=== PATIENT | male | born 1970 | race Caucasian/White ===

== ENCOUNTER 2019-09-04 11:10 | Emergency (ER) | payer BC ==
[2019-09-04 12:15] VITALS: BP 150/104
--- NOTE | 2019-09-04 13:50 | UC ---
Back Pain HPI - HPI Summary HPI Summary: PT WITH YEARS OF CHRONIC LOW BACK PAIN PRESENTS WITH 5 DAYS OF ACUTE EXACERBATION OF PAIN. NO DISCRETE INJURY. NO SADDLE ANESTHESIA, NUMBNESS/ TINGLING. STATES HIS PAIN USUALLY RESOLVED AFTER MASSAGES HIS BACK BUT NOT THIS TIME. NSAIDS ARE HELPFUL. - History of Current Complaint Chief Complaint: UCBackPain Stated Complaint: BACK PAIN Time Seen by Provider: 09/04/19 12:36 Hx Obtained From: Patient Onset/Duration: Gradual Onset, Lasting Days, Still Present Timing: Constant Severity Initially: Moderate Severity Currently: Moderate Pain Intensity: 6 Pain Scale Used: 0-10 Numeric Character: Sharp Aggravating Factor(s): Movement, Bending Alleviating Factor(s): Rest Associated Signs And Symptoms: Negative: Swelling, Weakness, Numbness, Tingling , Bladder Incontinence, Bowel Incontinence - Allergies/Home Medications Allergies/Adverse Reactions: Allergies Allergy/AdvReac Type Severity Reaction Status Date / Time No Known Allergies Allergy Verified 09/04/19 12:15 PMH/Surg Hx/FS Hx/Imm Hx Cardiovascular History: Hypertension - Surgical History Surgical History: Yes Surgery Procedure, Year, and Place: right bicep repair - Family History Known Family History: Positive: Non-Contributory - Social History Alcohol Use: Occasionally Substance Use Type: None Smoking Status (MU): Never Smoked Tobacco Review of Systems All Other Systems Reviewed And Are Negative: Yes Constitutional: Positive: Negative Skin: Positive: Negative Respiratory: Positive: Negative Cardiovascular: Positive: Negative Gastrointestinal: Positive: Negative Musculoskeletal: Positive: Arthralgia, Decreased ROM, Myalgia Physical Exam Triage Information Reviewed: Yes Appearance: Well-Appearing, No Pain Distress, Well-Nourished Vital Signs: Initial Vital Signs Temp 99.7 F 09/04/19 12:10 Pulse 95 09/04/19 12:10 Resp 18 09/04/19 12:10 BP 150/104 09/04/19 12:10 Pulse Ox 99 09/04/19 12:10 Vital Signs Reviewed: Yes Eyes: Positive: Conjunctiva Clear ENT: Positive: Hearing grossly normal Neck: Positive: Supple Respiratory: Positive: No respiratory distress, No accessory muscle use Cardiovascular: Positive: Pulses Normal Abdomen Description: Positive: Soft Musculoskeletal: Positive: ROM Intact, No Edema Neurological: Positive: Alert, Muscle Tone Normal Psychological: Positive: Age Appropriate Behavior Skin: Negative: Rashes Diagnostics - Radiology CT LUMBAR SPINE Radiology Interpretation Completed By: Radiologist Summary of Radiographic Findings: 1. Moderately severe bilateral acquired foraminal stenosis at L5-S1. Moderate bilateral foraminal stenosis at L4-L5. 2. Bilateral chronic appearing L5 spondylolysis with associated grade 2 L5-S1 anterolisthesis. Grade 1 degenerative L4-L5 retrolisthesis. Back Pain Course/Dx - Course Course Of Treatment: CT FINDINGS WARRANT SPECIALIST EVALUATION. RECOMMEND NEUROSURGERY AND/OR SPINE CENTER. NAPROXEN AND FLEXERIL NEEDED. TO ER IF SX WORSEN. - Differential Dx/Diagnosis Provider Diagnosis: Acute exacerbation of chronic low back pain Discharge ED - Sign-Out/Discharge Documenting (check all that apply): Patient Departure All imaging exams completed and their final reports reviewed: Yes - Discharge Plan Condition: Stable Disposition: HOME Prescriptions: Cyclobenzaprine TAB* [Flexeril TAB*] 10 mg PO BID PRN #30 tab PRN Reason: Pain Naproxen [Naproxen 500 mg tab] 500 mg PO BID PRN #30 tablet PRN Reason: Pain Patient Education Materials: Chronic Back Pain (DC) Forms: *Work Release Referrals: Ron Arriaza MD [Primary Care Provider] - Additional Instructions: CT LUMBAR SPINE TODAY SHOWS: 1. Moderately severe bilateral acquired foraminal stenosis at L5-S1. Moderate bilateral foraminal stenosis at L4-L5. 2. Bilateral chronic appearing L5 spondylolysis with associated grade 2 L5-S1 anterolisthesis. Grade 1 degenerative L4-L5 retrolisthesis. CALL NEUROSURGERY FOR A FOLLOW-UP APPT. CONSIDER PHYSICAL THERAPY. [facility] [address] [place] [address] BE SURE TO GO THROUGH SLOW RANGE OF MOTION AND STRETCHING EXERCISES DAILY YOU ARE ABLE TO PREVENT STIFFENING UP AND MAKING THE DISCOMFORT WORSE. PT REFERRAL PROVIDED. GO TO THE ED WITHOUT FAIL IF YOU DEVELOP WORSENING NUMBNESS/TINGLING IN YOUR LEGS, NUMBNESS IN THE GENITAL REGION, LOSS OF BOWEL/BLADDER CONTROL, INTOLERABLE PAIN OR ANY OTHER CONCERNING SYMPTOMS. - Billing Disposition and Condition Condition: STABLE Disposition: Home
== END 2019-09-04 14:35 | disposition home or self-care (01) ==
LOC: UCEAST 11:10
DX: M54.5 Low back pain (principal); G89.29 Other chronic pain; I10 Essential (primary) hypertension
CPT/HCPCS: 72131; 99212; G0463